=== PATIENT | male | born 1970 | race Caucasian/White ===

== ENCOUNTER 2018-02-26 21:47 | Emergency (ER) | payer OTHER ==
[2018-02-26] MEDS ORDERED: Pantoprazole 40 mg EC Tab PO STA (22:17)
[2018-02-26] MEDS ORDERED: Pantoprazole 40 mg EC Tab PO ONE (22:20)
--- NOTE | 2018-02-26 22:43 | ED Physician Chart ---
ED Chief Complaint/HPI - Patient Information Date Seen:: 02/26/18 Time Seen:: 22:34 Chief Complaint:: Epigastric pain History of Present Illness:: 47 yo male had epigastric pain 5-7/10, lying supine worsen the pain for 1 day. Patient had history of epigastric pain and was diagnosed with GERD relieved by GI cocktail 8 years ago. No EGD done before. Patient took Mylanta, Omeprazole at home without improvement. Allergies:: Allergies Allergy/AdvReac Type Severity Reaction Status Date / Time No Known Allergies Allergy Verified 02/26/18 21:54 Vitals:: Vital Signs - 8 hr 02/26/18 21:50 Temp 97.3 F HR 92 RR 18 BP 136/69 O2 Sat % 96 ED Review of Systems - Review of Systems General/Constitutional: No fever, No chills Skin: No bruising Head: No headache Eyes: No pain ENT: No nasal drainage Neck: No neck pain Cardio Vascular: No chest pain Pulmonary: No SOB GI: No nausea, No vomiting, Pain Musculoskeletal: No bone or joint pain Psychiatric: No prior psych history Neurological: No focal symptoms ED Past Medical History - Past Medical History Past Medical History: PUD/GERD Social History: Non Smoker, Alcohol, Illicit Drug Use (Marijuana) Surgical History: None Family Medical History - Family Member Mother Hx Family Hypertension: Yes Father History Unknown: Yes Hx Family Diabetes: Yes ED Physical Exam - Physical Examination General/Constitutional: Awake, Alert Head: Atraumatic Eyes: PERRL, EOMI Skin: No skin lesions ENMT: Nasal exam nl Neck: No nuchal rigidity Respiratory: No Wheeze/Rhonchi/Rales Cardio Vascular: RRR, No murmur, gallop, rubs, NL S1 S2 Other GI comments:: Epigastric tenderness Extremities: normal strength in all extremities Neuro/Psych: No focal deficits ED Labs/Radiology/EKG Results - Lab Results Results: Laboratory Last Values WBC 10.2 Th/cmm (4.8-10.8) 02/26/18 23:00 RBC 4.85 Mil/cmm (4.30-5.70) 02/26/18 23:00 Hgb 14.8 gm/dL (12-16) 02/26/18 23:00 Hct 44.5 % (41.0-60) 02/26/18 23:00 MCV 91.8 fl (80-99) 02/26/18 23:00 MCH 30.6 pg (26.0-30.0) H 02/26/18 23:00 MCHC Differential 33.3 pg (28.0-36.0) 02/26/18 23:00 RDW 13.2 % (11.5-20.0) 02/26/18 23:00 Plt Count 287 Th/cmm (150-400) 02/26/18 23:00 MPV 7.4 fl 02/26/18 23:00 Neutrophils % 66.6 % (40.0-80.0) 02/26/18 23:00 Lymphocytes % 22.2 % (20.0-50.0) 02/26/18 23:00 Monocytes % 9.5 % (2.0-10.0) 02/26/18 23:00 Eosinophils % 1.2 % (0.0-5.0) 02/26/18 23:00 Basophils % 0.5 % (0.0-2.0) 02/26/18 23:00 Sodium 140 mEq/L (136-145) 02/26/18 23:00 Potassium 3.6 mEq/L (3.5-5.1) 02/26/18 23:00 Chloride 100 mEq/L (98-107) 02/26/18 23:00 Carbon Dioxide 29.3 mEq/L (21.0-31.0) 02/26/18 23:00 Anion Gap 14.3 (7.0-16.0) 02/26/18 23:00 BUN 17 mg/dL (7-25) 02/26/18 23:00 Creatinine 1.1 mg/dL (0.7-1.3) 02/26/18 23:00 Est GFR ( Amer) > 60.0 ml/min (>90) 02/26/18 23:00 Est GFR (Non-Af Amer) > 60.0 ml/min 02/26/18 23:00 BUN/Creatinine Ratio 15.5 02/26/18 23:00 Glucose 113 mg/dL (70-105) H 02/26/18 23:00 Calcium 9.2 mg/dL (8.6-10.3) 02/26/18 23:00 Total Bilirubin 0.3 mg/dL (0.3-1.0) 02/26/18 23:00 AST 19 U/L (13-39) 02/26/18 23:00 ALT 24 U/L (7-52) 02/26/18 23:00 Alkaline Phosphatase 37 U/L (34-104) 02/26/18 23:00 Total Protein 6.8 gm/dL (6.0-8.3) 02/26/18 23:00 Albumin 4.3 gm/dL (4.2-5.5) 02/26/18 23:00 Globulin 2.5 gm/dL 02/26/18 23:00 Albumin/Globulin Ratio 1.7 (1.0-1.8) 02/26/18 23:00 Lipase 48 U/L (11-82) 02/26/18 23:00 - Radiology Results Results: CT abdomen/pelvis: no evidence of appendicitis, non-specific gas-filled large bowel loop without evidence of small bowel obstruction. ED Assessment - Assessment General Assessment: Gastritis/GERD Assessment/Comments:: CBC, CMP, lipase CT abdomen/pelvis without contrast Pantoprazole 40mg PO Lidocaine 2% 15ml PO Maalox 15ml PO D/c home F/u PCP and GI specialist, or return to ER if symptoms worsen ED Septic Shock - . Is Septic Shock (SBP<90, OR Lactate>4 mmol\L) present?: No - <6hrs of presentation: Vital Signs: Vital Signs - 8 hr 02/26/18 21:50 Temp 97.3 F HR 92 RR 18 BP 136/69 O2 Sat % 96 ED Reassessment (Disposition) - Reassessment Reassessment Condition:: Improved - Patient Disposition Discharge/Transfer:: Home
[2018-02-26 23:19] LABS: % BASOPHILS 0.5 % (0.0-2.0); % EOSINOPHILS 1.2 % (0.0-5.0); % LYMPHOCYTES 22.2 % (20.0-50.0); % MONOCYTES 9.5 % (2.0-10.0); % NEUTROPHILS 66.6 % (40.0-80.0); BASOPHILE ABSOLUTE 0.1 Th/cumm (0-0.2); EOSINOPHILE ABSOLUTE 0.1 Th/cmm (0.1-0.4); HEMATOCRIT 44.5 % (41.0-60); HEMOGLOBIN 14.8 gm/dL (12-16); LYMPHOCYTE ABSOLUTE 2.3 Th/cmm (1.5-3.0); MEAN CELL VOLUME 91.8 fl (80-99); MEAN CORPUSCULAR HEMOGLOBIN 30.6 pg (26.0-30.0); MEAN CORPUSCULAR HGB CONC 33.3 pg (28.0-36.0); MEAN PLATELET VOLUME 7.4 fl; NEUTROPHILE ABSOLUTE 6.7 Th/cmm (1.8-8.0); PLATELET COUNT 287 Th/cmm (150-400); RED BLOOD COUNT 4.85 Mil/cmm (4.30-5.70); RED CELL DISTRIBUTION WIDTH 13.2 % (11.5-20.0); WHITE BLOOD COUNT 10.2 Th/cmm (4.8-10.8)
[2018-02-26 23:35] LABS: ALB/GLOB RATIO 1.7 (1.0-1.8); ALBUMIN 4.3 gm/dL (4.2-5.5); ALKALINE PHOSPHATASE 37 U/L (34-104); ANION GAP 14.3 (7.0-16.0); BILIRUBIN,TOTAL 0.3 mg/dL (0.3-1.0); BUN - UREA NITROGEN 17 mg/dL (7-25); CALCIUM SERUM 9.2 mg/dL (8.6-10.3); CARBON DIOXIDE 29.3 mEq/L (21.0-31.0); CHLORIDE 100 mEq/L (98-107); CREATININE - SERUM 1.1 mg/dL (0.7-1.3); GFR AFRICAN-AMERICAN > 60.0 ml/min (>90); GFR NON AFRICAN-AMERICAN > 60.0 ml/min; GLUCOSE 113 mg/dL (70-105); LIPASE 48 U/L (11-82); POTASSIUM SERUM 3.6 mEq/L (3.5-5.1); SGOT 19 U/L (13-39); SGPT/ALT 24 U/L (7-52); SODIUM SERUM 140 mEq/L (136-145); TOTAL PROTEIN,SERUM 6.8 gm/dL (6.0-8.3)
[2018-02-26] MEDS ORDERED: Maalox 30 mL Cup PO ONE (23:47)
[2018-02-26] MEDS ORDERED: Donnatal Liq 5 ML UDC PO STA (23:49)
[2018-02-27] MEDS ORDERED: Maalox 30 mL Cup ONE (00:01)
--- NOTE | 2018-02-27 10:04 | Diagnostic Imaging Report ---
CT abdomen and pelvis without intravenous contrast Indication: Abdominal pain Comparison: None, Technique: Axial images were obtained from the lung bases to the bilateral proximal femurs without IV contrast. Coronal reconstructions were made. total DLP: [id number], CTDI10.7 FINDINGS: There is elevation of the right hemidiaphragm Hypoventilatory atelectatic changes of the lungs are noted. Right basal subsegmental atelectasis versus scarring is noted. Assessment of the solid organs is limited due to lack of IV contrast. No evidence of focal hepatic lesions. Distended gallbladder is noted. No radiopaque gallstones. No focal splenic, pancreatic, or adrenal lesions. No evidence of hydronephrosis or focal renal lesions. There is a moderate to large fat-containing left inguinal hernia. No evidence of bowel obstruction. Nonspecific gas-filled loops of bowel, primarily large bowel are noted. Moderate stool is noted. No appendicitis. No free fluid or free air. Distended stomach is noted with air-fluid level. Degenerative changes of the spine and pelvis are noted. IMPRESSION: No evidence of acute appendicitis Nonspecific gas-filled loops of bowel, primarily large bowel loops of the transverse colon. No evidence of small bowel obstruction. Distended gallbladder. No radiopaque gallstones. If indicated, ultrasound would further clarify Moderate to large sized fat-containing left inguinal hernia.
== END 2018-02-27 00:30 | disposition home or self-care (01) ==
LOC: ER 21:47
DX: K21.9 Gastro-esophageal reflux disease without esophagitis (principal); K29.70 Gastritis, unspecified, without bleeding
CPT/HCPCS: 36415-UA; 80053-TC; 83690-TC; 85025-TC; Z7502; Z7610